=== PATIENT | male | born 1970 | race Hispanic/Latino ===

== ENCOUNTER 2018-05-09 16:16 | Emergency (ER) | payer OTHER ==
--- NOTE | 2018-05-09 17:35 | Emergency Department Report ---
Blank Doc - Documentation Documentation: pt sent to ED by PCP today s/p vommiting x tuesday EXAM: Non tender abdomen no active vomiting PLAN: CT abdomen pelvis add with contrast if BMP wnl r/o bowel obstruction fasttrack: mse complete
[2018-05-09] MEDS ORDERED: NACL 0.9% 1000 ML 1,000 ML IV ONE (18:22)
[2018-05-09] MEDS ORDERED: ZOFRAN IV ONE (18:22)
[2018-05-09 18:23] LABS: BUN/Creatinine Ratio 28; Blood Urea Nitrogen 25 mg/dL (9-20); Calcium 8.5 mg/dL (8.4-10.2); Hemolysis Index 10
--- NOTE | 2018-05-09 18:25 | Emergency Department Report ---
ED Abdominal Pain HPI - General Chief Complaint: Nausea/Vomiting/Diarrhea Stated Complaint: VOMITING/REFER BY DOCTOR Time Seen by Provider: 05/09/18 17:26 Source: patient Mode of arrival: Ambulatory Limitations: No Limitations - History of Present Illness Initial Comments: Patient is 48 years old male with history of diabetes. Patient presented to the ER for evaluation of abdominal pain, nausea and vomiting. Patient was seen by his primary care physician today and sent for further management. Patient stated the symptoms started 4 days ago was nausea and vomiting. Patient stated that he think it might be a food poisoning but symptoms continue more than 4 days now. Patient denied any fever or chills. He denied diarrhea also. MD Complaint: abdominal pain Severity scale (0 -10): 0 - Related Data Allergies Allergy/AdvReac Type Severity Reaction Status Date / Time No Known Allergies Allergy Verified 05/09/18 17:25 ED Review of Systems ROS: Stated complaint: VOMITING/REFER BY DOCTOR Other details as noted in HPI Comment: All other systems reviewed and negative Constitutional: denies: chills, fever Respiratory: denies: cough, orthopnea, shortness of breath, SOB with exertion, SOB at rest, stridor, wheezing Cardiovascular: denies: chest pain, palpitations Gastrointestinal: abdominal pain, nausea, vomiting. denies: diarrhea, constipation, hematemesis, melena, hematochezia Musculoskeletal: denies: back pain Neurological: denies: headache, weakness, numbness, paresthesias, confusion ED Past Medical Hx - Past Medical History Previous Medical History?: Yes Hx Diabetes: Yes - Surgical History Past Surgical History?: Yes Additional Surgical History: TONSILECTOMY, CATARACT - Social History Smoking Status: Never Smoker Substance Use Type: None ED Physical Exam - General Limitations: No Limitations General appearance: alert, in no apparent distress - Head Head exam: Present: atraumatic, normocephalic, normal inspection - Eye Eye exam: Present: normal appearance, PERRL - ENT ENT exam: Present: normal orophraynx, mucous membranes dry - Neck Neck exam: Present: normal inspection, full ROM. Absent: tenderness, meningismus, lymphadenopathy, thyromegaly - Respiratory Respiratory exam: Present: normal lung sounds bilaterally. Absent: respiratory distress, wheezes, rales, rhonchi, stridor, chest wall tenderness, accessory muscle use, decreased breath sounds, prolonged expiratory - Cardiovascular Cardiovascular Exam: Present: regular rate, normal rhythm, normal heart sounds - GI/Abdominal GI/Abdominal exam: Present: soft, normal bowel sounds. Absent: distended, tenderness, guarding, rebound, rigid, organomegaly, mass, bruit, pulsatile mass, hernia - Extremities Exam Extremities exam: Present: normal inspection, full ROM, normal capillary refill. Absent: pedal edema, calf tenderness - Back Exam Back exam: Present: normal inspection, full ROM - Neurological Exam Neurological exam: Present: alert, oriented X3, CN II-XII intact, normal gait, reflexes normal - Psychiatric Psychiatric exam: Present: normal affect, normal mood. Absent: depressed, agitated - Skin Skin exam: Present: warm, intact, normal color ED Course Vital Signs 05/09/18 05/09/18 05/09/18 16:48 18:30 18:42 Temperature 99.1 F Pulse Rate 104 H 97 H Respiratory 20 18 16 Rate Blood Pressure Blood Pressure 139/86 [Left] Blood Pressure 115/75 [Right] O2 Sat by Pulse 98 97 Oximetry 05/09/18 05/09/18 05/09/18 19:14 19:15 19:30 Temperature Pulse Rate Respiratory Rate Blood Pressure 129/76 Blood Pressure [Left] Blood Pressure [Right] O2 Sat by Pulse 98 98 100 Oximetry ED Medical Decision Making - Lab Data Result diagrams: 05/09/18 18:32 05/09/18 17:38 - Radiology Data Radiology results: report reviewed Referring Physician: LLUVIA REY Patient Name: DERIAN EMERSON Date of : 1970 Sex: Male Report Date: 2018-05-09 Report Status: Finalized Findings [facility] [address] [place] [address] Cat Scan Report Signed Patient: DERIAN EMERSON MR#: [id number] : 1970 Acct:[id number] Age/Sex: 48 / M ADM Date: 05/09/18 Loc: ED Attending Dr: Ordering Physician: LLUVIA REY Date of Service: 05/09/18 Procedure(s): CT abdomen pelvis w con Accession Number(s): [id number] cc: LLUVIA REY FINAL REPORT PROCEDURE: CT ABD AND PELVIS W CONTRAST TECHNIQUE: Computerized axial tomography of the abdomen and pelvis was performed after the IV injection of iodinated nonionic contrast. HISTORY: LOSS OF APPETITE COMPARISON: No prior studies are available for comparison. FINDINGS: Visualized lower thorax: Linear atelectasis or scarring in the posterior right lung base. Liver: Normal size and attenuation. Spleen: Normal size and attenuation. Gallbladder and biliary system: Normal. Pancreas: Normal. Adrenals: Normal. Kidneys: Normal. GI tract: Fluid-filled small and large bowel loops can be seen with enterocolitis. No bowel obstruction or inflammation. Small hiatal hernia Lymph nodes and mesentery: Normal. Vasculature: Normal. Bladder: Normal. Reproductive organs: Normal. Peritoneum: No free fluid. Musculoskeletal structures: No significant abnormality. Other: None. IMPRESSION: Fluid-filled small and large bowel loops can be seen with enterocolitis Transcribed By: [facility] Dictated By: AYSE OZUNA M.D. Electronically Authenticated By: AYSE OZUNA M.D. Signed Date/Time: 05/09/181939 DD/ 38 TD/TT: 05/09/181938 - Medical Decision Making Patient is 48 years old male with history of diabetes. Patient presented to the ER for evaluation of abdominal pain, nausea and vomiting. Patient was seen by his primary care physician today and sent for further management. Patient stated the symptoms started 4 days ago was nausea and vomiting. Patient stated that he think it might be a food poisoning but symptoms continue more than 4 days now. Patient denied any fever or chills. He denied diarrhea also. Patient evaluated by me multiple times. Patient stated that he is feeling much better. Labs review does and is unremarkable. CT abdomen and pelvis did not show any evidence of small bowel obstruction and it did show evidence of enterocolitis. Patient received Zosyn in the emergency room and I'll discharge patient with Cipro and Flagyl and advised him to follow-up with his primary care physician in the next 2-3 days. Critical care attestation.: If time is entered above; I have spent that time in minutes in the direct care o f this critically ill patient, excluding procedure time. ED Disposition Clinical Impression: Abdominal pain, Enterocolitis Disposition: TO HOME OR SELFCARE Is pt being admited?: No Condition: Stable Instructions: Infectious Colitis (ED), Acute Nausea and Vomiting (ED) Referrals: MARGARETTE CARRERA MD [Primary Care Provider] - 3-5 Days
[2018-05-09 18:41] LABS: Basophils % (Auto) 0.3 % (0.0-1.8); Eosinophils # (Auto) 0.1 K/mm3 (0.0-0.4); Eosinophils % (Auto) 0.8 % (0.0-4.3); Hematocrit 43.4 % (35.5-45.6); Hemoglobin 14.2 gm/dl (11.8-15.2); Lymphocytes # (Auto) 0.7 K/mm3 (1.2-5.4); Lymphocytes % (Auto) 8.7 % (13.4-35.0); Mean Corpuscular HGB Conc 33 % (32-34); Mean Corpuscular Volume 84 fl (84-94); Monocytes # (Auto) 0.8 K/mm3 (0.0-0.8); Platelet Count 221 K/mm3 (140-440); Red Blood Count 5.17 M/mm3 (3.65-5.03); Red Cell Distribution Width 14.6 % (13.2-15.2)
[2018-05-09 18:55] LABS: Alanine Aminotransferase 18 units/L (7-56); Albumin 3.9 g/dL (3.9-5)
[2018-05-09 18:57] LABS: Bilirubin,Direct < 0.2 mg/dL (0-0.2)
--- NOTE | 2018-05-09 19:40 | Cat Scan Report ---
FINAL REPORT PROCEDURE: CT ABD AND PELVIS W CONTRAST TECHNIQUE: Computerized axial tomography of the abdomen and pelvis was performed after the IV inject ion of iodinated nonionic contrast. HISTORY: LOSS OF APPETITE COMPARISON: No prior studies are available for comparison. FINDINGS: Visualized lower thorax: Linear atelectasis or scarring in the posterior right lung base. Liver: Normal size and attenuation. Spleen: Normal size and attenuation. Gallbladder and biliary system: Normal. Pancreas: Normal. Adrenals: Normal. Kidneys: Normal. GI tract: Fluid-filled small and large bowel loops can be seen with enterocolitis. No bowel obstructi on or inflammation. Small hiatal hernia Lymph nodes and mesentery: Normal. Vasculature: Normal. Bladder: Normal. Reproductive organs: Normal. Peritoneum: No free fluid. Musculoskeletal structures: No significant abnormality. Other: None. IMPRESSION: Fluid-filled small and large bowel loops can be seen with enterocolitis
[2018-05-09 20:53] VITALS: BP 139/86
[2018-05-09] MEDS ORDERED: ZOSYN/NS 3.375GM/50ML 3.375 GM/50 ML BAG IV ONE (21:00)
== END 2018-05-09 21:05 | disposition home or self-care (01) ==
LOC: ED 16:16
DX: K52.9 Noninfective gastroenteritis and colitis, unspecified (principal); R11.2 Nausea with vomiting, unspecified; E11.9 Type 2 diabetes mellitus without complications; Z90.89 Acquired absence of other organs
CPT/HCPCS: 36415; 74177; 80048; 80076; 83690; 85025; 96361; 96365; 96375; 99284; J2405; J2543; J7030; Q9967